=== PATIENT | female | born 1995 | race Caucasian/White ===

== ENCOUNTER 2018-05-31 19:48 | Emergency (ER) | payer SELFPAY ==
[2018-05-31] MEDS ORDERED: Lorazepam 1 MG TAB ONE (20:54)
== END 2018-05-31 20:59 | disposition home or self-care (01) ==
LOC: MADERS 19:48
DX: F41.0 Panic disorder [episodic paroxysmal anxiety] (principal); F45.8 Other somatoform disorders; Z79.899 Other long term (current) drug therapy
CPT/HCPCS: 99283

== ENCOUNTER 2025-01-30 09:52 | Outpatient (CLI) | payer OTHER ==
[2025-01-30 10:24] LABS: ALT (SGPT) 14 U/L (Less than 34); AST (SGOT) 23 U/L (11-34); Albumin 4.6 g/dL (3.1-4.5); Alkaline Phosphatase 106 U/L (40-110); Anion Gap 15 mmol/L (10-20); BUN (Urea Nitrogen) 16 mg/dL (7.0-18.7); Bilirubin, Total 1.0 mg/dL (0.3-1.2); Calc. Creatinine Clearance 0 mL/min (70-130); Calcium 9.2 mg/dL (7.8-10.44); Carbon Dioxide 23 mmol/L (22-29); Chloride 109 mmol/L (98-107); Globulin 2.5 g/dL (2.4-3.5); Glucose 84 mg/dL (70-105); Magnesium 2.0 mg/dL (1.6-2.6); Potassium 3.9 mmol/L (3.5-5.1); Sodium 143 mmol/L (136-145)
[2025-01-30 16:31] LABS: Iron 78 ug/dL (50-170); Iron Binding Capacity, Total 309 mcg/dL (265-497)
[2025-01-30 16:58] LABS: Free T4 (Free Thyroxine) 0.94 ng/dL (0.70-1.48)
[2025-01-30 17:16] LABS: Vitamin D, 25 Hydroxy 47.3 ng/ml (> 30.0)
[2025-01-31 13:13] LABS: Thyroid Peroxidase IgG Ab 194.0 IU/mL (<25 Normal)
== END 2025-01-30 09:53 | disposition home or self-care (01) ==
LOC: MADLAB 09:52
PROVIDERS: ATTEND Internal Medicine Endocrinology, Diabetes & Metabolism
DX: E03.9 Hypothyroidism, unspecified (principal); N92.5 Other specified irregular menstruation
CPT/HCPCS: 36415; 80053; 82306; 83540; 83550; 83735; 84439; 84443; 86376

== ENCOUNTER 2025-03-02 10:23 | Emergency (ER) | payer OTHER | END 2025-03-02 10:52 | disposition home or self-care (01) | LOC: MADERS 10:23 | DX: H66.91 Otitis media, unspecified, right ear (principal); Z79.890 Hormone replacement therapy | CPT/HCPCS: 99282 ==